=== PATIENT | male | born 1965 | race Caucasian/White ===

== ENCOUNTER 2016-06-28 03:38 | Emergency (ER) | payer BC ==
[~2016-06-28] VITALS: Ht 172.7 cm; Wt 76.9 kg
[2016-06-28 03:42] VITALS: BP 134/95; PULSE 79; RESP 16; TEMP 97.8; O2SAT 99
--- NOTE | 2016-06-28 05:22 | PD ---
HPI Chief Complaint: Pain: Acute or Chronic Time Seen by Provider: 05:09 Travel History International Travel<30 days: No Contact w/Intl Traveler<30days: No Traveled to known affect area: No History of Present Illness HPI The patient is a 51-year-old male that complains of right sciatic pain for a week. He has a history of sciatic nerve pain but this is lasted longer than it usually lasts. He came in tonight just to get it checked. PFSH Past Medical History Diminished Hearing: No Neurologic: Yes (Sciatic nerve problematic) Tetanus Vaccination: Unknown Influenza Vaccination: No Past Surgical History Surgical History: No Previous Surgery Social History Alcohol Use: Yes (occassional) Tobacco Use: No Substance Use: No Allergies-Medications (Allergen,Severity, Reaction): Coded Allergies: No Known Allergies (Unverified , 06/28/16) Reported Meds & Prescriptions Reported Meds & Active Scripts Active No Active Prescriptions or Reported Medications Review of Systems Except as stated in HPI: all other systems reviewed are Neg Physical Exam Narrative GENERAL: Well-nourished, well-developed patient who is walking around normally and slight apparent distress with his right sciatic nerve pain. His vital signs show blood pressure 134/95 but are otherwise normal. SKIN: Focused skin assessment warm/dry. HEAD: Normocephalic. EYES: No scleral icterus. No injection or drainage. NECK: Supple, trachea midline. No JVD or lymphadenopathy. CARDIOVASCULAR: Regular rate and rhythm without murmurs, gallops, or rubs. RESPIRATORY: Breath sounds equal bilaterally. No accessory muscle use. GASTROINTESTINAL: Abdomen soft, non-tender, nondistended. MUSCULOSKELETAL: No cyanosis, or edema. Straight leg raising is normal, deep tendon reflexes are less 1 bilaterally both patella Achilles and pinprick is normal. There is tenderness over the sciatic nerve on the right. BACK: Nontender without obvious deformity. No CVA tenderness. Data Data Last Documented VS Vital Signs Date Time Temp Pulse Resp B/P Pulse Ox O2 Delivery O2 Flow Rate FiO2 06/28/16 05:25 81 17 131/91 98 Room Air 06/28/16 03:42 97.8 Orders Spine, Lumbar Comp W/Obliq (06/28/16 05:12) MDM Medical Decision Making Medical Screen Exam Complete: Yes Emergency Medical Condition: Yes Medical Record Reviewed: Yes Interpretation(s) X-rays of the lumbar spine with oblique are unremarkable except for mild intravertebral disc space narrowing at L5-S1. Differential Diagnosis Sciatic nerve pain, herniated nucleus pulposus, subluxation lumbosacral spine, compression fracture lumbosacral spine. Narrative Course The patient has sciatic nerve pain. The patient will be prescribed Flexeril, Motrin and Lortab 5. He should not drink alcohol or drive on the Flexeril or Lortab 5. He can use a heating pad turning it on its lowest setting and interposing a towel between his skin and the pad. Diagnosis Primary Impression: Sciatic nerve pain Additional Instructions: As we discussed, the heating pad is sometimes useful. Turned on its lowest setting an interposed a towel between your skin and the pad, warmth is good but hot is no better and can be dangerous. Follow-up with her primary care physician. Med/Other Pt SpecificInfo: Prescription(s) given Scripts Hydrocodone-Acetaminophen (Lortab)5-325 Mg Tab1 Tab PO Q4H PRN (PAIN) #30 TAB Ref 0 Prov:Wally Up MD 06/28/16 Ibuprofen 600 Mg Kcu166 Mg PO TID #44 TAB Ref 0 Prov:Wally Up MD 06/28/16 Cyclobenzaprine (Flexeril)10 Mg Tab10 Mg PO TID #60 TAB Ref 0 Prov:Wally Up MD 06/28/16 Disposition: 01 DISCHARGE HOME Condition: Stable Wally Up MD Jun 28, 2016 05:22
[2016-06-28 05:25] VITALS: BP 131/91; PULSE 81; RESP 17; O2SAT 98
--- NOTE | 2016-06-28 06:11 | RADHPO ---
EXAM DATE/TIME: 06/28/2016 05:24 [facility] COMPARISON: No previous studies available for comparison. INDICATIONS : Low back pain down right leg. No trauma. MEDICAL HISTORY : None. SURGICAL HISTORY : None. ENCOUNTER: Initial ACUITY: 1 week PAIN SCORE: 7/10 LOCATION: Right Paraspinal FINDINGS: There are five non-rib bearing vertebral bodies. The vertebral bodies are in normal alignment withou t evidence of subluxation or scoliosis. The disc spaces are maintained. The posterior elements are intact without evidence of spondylolysis. The pedicles are intact. Bony mineralization is normal. No fracture is identified. CONCLUSION: Unremarkable examination of the lumbar spine except mild intervertebral disc space narrowing at L5-S1 . Kennedy Leach MD on June 28, 2016 at 6:09 Board Certified Radiologist. This report was verified electronically.
[2016-06-28 06:40] VITALS: BP 140/84; PULSE 87; RESP 16; TEMP 97.8; O2SAT 98
[2016-06-28] MEDS ORDERED: CYCL1TAB29 PO (06:42)
[2016-06-28] MEDS ORDERED: IBUP-232 PO (06:42)
[2016-06-28] MEDS ORDERED: HYDR-3533 PO (06:42)
== END 2016-06-28 07:03 | disposition home or self-care (01) ==
LOC: PHED 03:38
DX: M54.41 Lumbago with sciatica, right side (principal)
CPT/HCPCS: 72110; 99283